=== PATIENT | female | born 1990 | race Caucasian/White ===

== ENCOUNTER 2021-04-27 05:31 | Outpatient (CLI) | payer BC ==
[~2021-04-27] VITALS: Ht 172.7 cm; Wt 86.3 kg
[~2021-04-27 05:31] MED LIST: CONTRACEPTIVE PO; OXYC-12 PO
[2021-04-27] MEDS ORDERED: SERT100T PO (14:47)
[2021-04-27] MEDS ORDERED: HYDR-700 PO (14:47)
[2021-04-27] MEDS ORDERED: LEVO112C4 PO (14:47)
[2021-04-27] MEDS ORDERED: INSULIN PUMP NOVOLOG (14:47)
== END 2021-04-27 15:05 ==
LOC: PREOP 05:31
PROVIDERS: ATTEND Surgery
DX: Z01.818 Encounter for other preprocedural examination (principal)

== ENCOUNTER 2021-05-04 09:40 | Day surgery (SDC) | payer BC ==
[~2021-05-04] VITALS: Ht 172.7 cm; Wt 90.3 kg
[2021-05-04] VITALS (11 sets, daily range): BP systolic 107–131; BP diastolic 76–92
[~2021-05-04 09:40] MED LIST changes: +HYDR-700 PO; +INSULIN PUMP NOVOLOG; +LACTATED RINGERS 1,000 ML IV PRN; +LEVO112C4 PO; +SERT100T PO; +ceFAZolin 2 GM IV Premixed 50 ML IV ONE
[2021-05-04] MEDS ORDERED: LIDOCAINE/EPI 1%-1:200,000 (XYLOCAINE) 30 ML VIAL ONE (10:07)
--- NOTE | 2021-05-04 10:12 | Progress Note-Pre Operative ---
Pre-Operative Progress Note H&P Reviewed The H&P was reviewed, patient examined and no changes noted. Date Seen by Provider: May 04, 2021 Time Seen by Provider: 10:10 Date H&P Reviewed: May 04, 2021 Time H&P Reviewed: 10:05 Pre-Operative Diagnosis: Chronic calculous cholecystitis, symptomatic hemorrhoids KISHA CASTILLO APRN May 04, 2021 10:12
[2021-05-04] MEDS ORDERED: HYDR-3817 PO (10:13)
--- NOTE | 2021-05-04 10:14 | Discharge Inst-Surgical ---
D/C Lap Instructions-KIDO Reconcile Patient Problems Problems Reviewed?: Yes New, Converted, or Re-Newed RX: RX on Chart Follow Up Appt in 2 weeks Activity as tolerated No driving for 24 hours No driving while on pain medications Incentive Spirometry use every 2 hours while awake Regular Diet Symptoms to Report: Fever over 101 degree F, Nausea/Vomiting Infection Signs and Symptoms to report: Increased redness, Foul odor of wound, Increased drainage Bathing instructions: May shower Operative Area Clean/Dry; Keep incision clean/dry If any problems/questions: Contact your physician or go to Emergency Room KISHA CASTILLO APRN May 04, 2021 10:14
[2021-05-04] MEDS ORDERED: HYDROcodone/APAP 5 MG/325 MG (LORTAB) TAB PO ONE (10:15)
[2021-05-04] MEDS ORDERED: IBUPROFEN 600 MG (MOTRIN) TAB PO PRN ×2 (10:15→10:30)
[2021-05-04] MEDS ORDERED: ONDANSETRON 4 MG/2 ML (SDV) Z0FRAN IVP PRN ×2 (10:15→13:45)
[2021-05-04] MEDS ORDERED: ACETAMINOPHEN 325 MG TABLET PO PRN (10:15)
[2021-05-04] MEDS ORDERED: morphine INJ 10 MG/ML 1ML (SYR OR VIAL) IVP PRN (10:15)
[2021-05-04] MEDS ORDERED: MIDAZOLAM 2 MG/2 ML (VERSED) VIAL ONE (11:44)
[2021-05-04] MEDS ORDERED: fentaNYL INJ 100 MCG/2 ML AMP ONE ×2 (11:44→13:43)
[2021-05-04] MEDS ORDERED: proPOfol 200 MG/20 ML (DIPRIVAN) VIAL IV ONE (12:06)
[2021-05-04] MEDS ORDERED: ROCURONIUM 10 MG/ML 5 ML SYRINGE IV ONE (12:06)
[2021-05-04] MEDS ORDERED: ONDANSETRON 4 MG/2 ML (SDV) Z0FRAN ONE ×2 (12:06→13:47)
[2021-05-04] MEDS ORDERED: LIDOCAINE PF 2% 5 ML (XYLOCAINE) VIAL ONE (12:06)
[2021-05-04] MEDS ORDERED: SEVOFLURANE (ULTANE) 15 ML INHAL SOLN ONE (13:38)
--- NOTE | 2021-05-04 13:41 | Progress Note-Post Operative ---
Post-Operative Progess Note Surgeon (s)/Museum Tour Guide (s) Surgeon ZULLY BARR MD Museum Tour Guide: jayson aguirre PHOTO FINISHER Pre-Operative Diagnosis GALLSTONES AND HEMMORHOIDS Post-Operative Diagnosis gallstones, stage 3 ext and int hemorrhoids. Procedure & Operative Findings Date of Procedure 05/04/21 Procedure Performed/Findings laparoscopic cholecystectomy. hemorrhoidectomy. Anesthesia Type get Estimated Blood Loss Estimated blood loss (mL): minimal Specimens/Packing Specimens Removed gallbladder, hemorrhoids. ZULLY BARR MD May 04, 2021 13:41
[2021-05-04] MEDS ORDERED: MEPERIDINE (DEMEROL) INJ 50 MG/ML IVP ONE (13:45)
[2021-05-04] MEDS ORDERED: KETOROLAC 30 MG/ML VIAL IVP ONE (13:45)
[2021-05-04] MEDS ORDERED: HYDROmorphone 2 MG/ML VIAL (DILAUDID) IV ONE (13:45)
[2021-05-04] MEDS ORDERED: fentaNYL INJ 100 MCG/2 ML AMP IVP ONE (13:45)
[2021-05-04] MEDS ORDERED: PROMETHAZINE INJ 25 MG/ML (PHENERGAN) AMP IVP ONE (13:45)
[2021-05-04] MEDS ORDERED: KETOROLAC 30 MG/ML VIAL ONE (13:46)
--- NOTE | 2021-05-04 14:33 | Anesthesia-General Post-Op ---
General Patient Condition Mental Status/LOC: Same as Preop Cardiovascular: Satisfactory Nausea/Vomiting: Absent Respiratory: Satisfactory Pain: Controlled Complications: Absent Post Op Complications Complications None Follow Up Care/Instructions Patient Instructions None needed. Anesthesia/Patient Condition Patient Condition Patient is doing well, no complaints, stable vital signs, no apparent adverse anesthesia problems. No complications reported per nursing. BIRDIE HONG CRNA May 04, 2021 14:33
--- NOTE | 2021-05-04 20:33 | OPERATIVE REPORT ---
DATE OF SERVICE: 05/04/2021 ATTENDING PRIMARY CARE PHYSICIAN: Dr. Kemi Richards. PREOPERATIVE DIAGNOSES: Symptomatic chronic calculous cholecystitis and symptomatic stage III external and internal hemorrhoids. POSTOPERATIVE DIAGNOSES: Symptomatic chronic calculous cholecystitis and symptomatic stage III external and internal hemorrhoids. PROCEDURES PERFORMED: Laparoscopic cholecystectomy, pudendal nerve black, closed hemorrhoidectomy. SURGEON: Zully Barr MD. PAGINATOR: Anthony Wilcox APRN. ANESTHESIA: General endotracheal. ESTIMATED BLOOD LOSS: Minimal. FINDINGS: Symptomatic chronic calculous cholecystitis and symptomatic stage III external and internal hemorrhoids. DISPOSITION: The patient tolerated the procedure well. INDICATIONS FOR PROCEDURE: The patient is a 30-year-old female, who has had right upper abdominal quadrant pain after eating meals as well as nausea, vomiting, and diarrhea. She underwent an ultrasound, which did show gallstones. She also reports that she has had a longstanding issues with hemorrhoids, which frequently become flared and bleed. She reports that she has to manually reduce them; however, they come back out soon after. Upon examination, she was found to have stage III external and internal hemorrhoids as she has tried medical management with stool softeners as well as Sitz baths and high fiber supplementation, which has not helped. DESCRIPTION OF PROCEDURE: The patient was brought to the operating room and laid supine on the table. After adequate IV pain and sedative medications and general endotracheal intubation, the abdomen was prepped and draped in a standard surgical fashion. A 0.5% Marcaine with epinephrine was then used to anesthetize the overlying skin in the left upper abdominal quadrant and a transverse skin incision was made using a 15 blade. A 0 silk suture was applied to the medial aspect incision for retraction and a Veress needle inserted with a low opening pressure of 0 mmHg. The abdomen was then insufflated to 15 mmHg pressure. The Veress needle removed and a 5 mm XL trocar placed followed by a 5 mm 45-degree angle laparoscope visualizing the peritoneal cavity. A 4-quadrant abdominal exploration was performed. There was a distended gallbladder, no gallbladder wall thickening. Under direct visualization, we then proceeded to place a supraumbilical 10 mm port after the skin and peritoneal lining were anesthetized using 0.5% Marcaine with epinephrine and a transverse skin incision was made using a 15 blade. In a similar manner, a right upper abdominal quadrant 5 mm port was placed. The patient was then placed in a reverse Trendelenburg position as well as plane right side up, left side down. The fundus of the gallbladder was then retracted anteriorly and superiorly. The hepatoduodenal ligament was then opened using blunt dissection as well as an electrocautery on the hook instrument as well as a [place] dissector. The entire critical view of safety was identified including the triangle of Calot as well as the cystic duct and artery as the only two structures going into the gallbladder as well as the cystic plate behind the proximal gallbladder. A timeout was then taken and the cystic duct and artery were clipped proximally, distally and cut with EndoShears. The gallbladder was then dissected off the liver bed using electrocautery on the hook instrument with visualization of good hemostasis as well as no leaking ducts of Luschka. The gallbladder was removed through the 10 mm port site using an EndoCatch bag. The 10 mm port site fascia and peritoneum were then closed under direct visualization using a [place] device and 0 Vicryl suture. The abdomen was desufflated and remaining ports removed. All skin incisions were closed using 4-0 Monocryl running subcuticular sutures, cleaned and covered with Dermabond. The patient was then placed in a lithotomy position and the perineum prepped and draped in a standard surgical fashion. Stage III external and internal hemorrhoidal cushions were identified. We then proceeded with bilateral pudendal nerve block with 1% lidocaine and visualized relaxing of anal sphincters and a speculum placed. We then proceeded with excision of each hemorrhoidal cushions, starting with the anterior most cushion. A 0 Vicryl suture was placed just proximal to the anterior hemorrhoid and the tag placed on the suture. We then proceeded with excision of the external and internal hemorrhoid in continuity using the Sonicision identifying the anal sphincter and preserving this throughout the process. The mucosa and anoderm were then reapproximated using the 0 Vicryl running suture. In a similar manner, the two posterior cushions were excised and closed using 0 Vicryl running sutures with visualization of good hemostasis and no stricture identified with two fingerbreadths diameter. The anus was then packed with Gelfoam covered in Surgicel. The patient tolerated the procedure well. We will start IV normal pain medication as well as a clear liquid diet. Once she is tolerating clears, has good pain control with oral pain medications, ambulating well, we will discharge her home. She will be instructed to do no heavy lifting or exertion for the next two weeks and to do Sitz baths q.i.d. as well as after every bowel movement. Job ID: [id number] DocumentID: [id number] Dictated Date: 05/04/2021 13:47:17 Building Maintenance Technician Date: 05/04/2021 20:32:42 Dictated By: ZULLY BARR MD MTDD
== END 2021-05-04 17:00 | disposition home or self-care (01) ==
LOC: SDC 09:40
PROVIDERS: ATTEND Surgery
DX: K80.10 Calculus of gallbladder with chronic cholecystitis without obstruction (principal); K64.2 Third degree hemorrhoids; F32.9 Major depressive disorder, single episode, unspecified; E10.9 Type 1 diabetes mellitus without complications; F41.9 Anxiety disorder, unspecified; E03.9 Hypothyroidism, unspecified; Z87.891 Personal history of nicotine dependence; Z79.899 Other long term (current) drug therapy; Z79.890 Hormone replacement therapy; Z79.2 Long term (current) use of antibiotics
CPT/HCPCS: 82947; 84703; 87081

== ENCOUNTER → 2021-07-27 | Outpatient (CLI) | payer BC ==
[~2021-07-27] VITALS: Ht 172.7 cm; Wt 90.3 kg
[~2021-07-27] MED LIST changes: +HYDR-3817 PO; +IBUP-2473 PO; -LACTATED RINGERS 1,000 ML IV PRN; +PANT40TA2 PO; +VORT20TA PO; -ceFAZolin 2 GM IV Premixed 50 ML IV ONE
== END | disposition home or self-care (01) ==
LOC: PREOP 10:17
PROVIDERS: ATTEND Surgery
DX: Z01.818 Encounter for other preprocedural examination (principal)

== ENCOUNTER 2021-07-28 10:30 | Day surgery (SDC) | payer BC, OTHER ==
[2021-07-28] VITALS (8 sets, daily range): BP systolic 106–121; BP diastolic 64–87
[~2021-07-28] VITALS: Ht 172.7 cm; Wt 90.3 kg
[~2021-07-28 10:30] MED LIST changes: -PANT40TA2 PO
[2021-07-28] MEDS ORDERED: NS IV 500 ML 500 ML ONE (10:38)
[2021-07-28] MEDS ORDERED: MIDAZOLAM 5 MG/5 ML (VERSED) VIAL IV ONE (10:45)
[2021-07-28] MEDS ORDERED: NS IV 500 ML 500 ML IV PRN (10:45)
[2021-07-28] MEDS ORDERED: LIDOCAINE JELLY 2% 6 ML SYRINGE MM PRN (10:45)
[2021-07-28] MEDS ORDERED: fentaNYL INJ 100 MCG/2 ML AMP IVP ONE (10:45)
--- NOTE | 2021-07-28 12:10 | Conscious Sedation/ASA ---
Conscious Sedation Pre-Proced Time 11:30 ASA Score 2 For ASA 3 and 4: Consider anesthesia and medical clearance. Also, for patients with a history of failed moderate sedation consider anesthesia. Airway Lungs Heart ASA score ASA 1: a normal healthy patient ASA 2: a patient with a mild systemic disease (mid diabetes, controlled hypertension, obesity ASA 3: a patient with a severe systemic disease that limits activity (angina, COPD, prior Myocardial infarction) ASA 4: a patient with an incapacitating disease that is a constant threat to life (CHF, renal failure) ASA 5: a moribund patient not expected to survive 24 hrs. (ruptured aneurysm) ASA 6: a declared brain- patient whose organs are being harvested. For emergent operations, add the letter E after the classification Mallampati Classification Grade 2 Sedation Plan Analgesia, Amnesia, Plan communicated to team members, Discussed options with patient/fam, Discussed risks with patient/fam The patient is an appropriate candidate to undergo the planned procedure, sedation, and anesthesia. The patient immediately re-assessed prior to indication. ZULLY BARR MD Jul 28, 2021 12:10
--- NOTE | 2021-07-28 12:11 | Progress Note-Pre Operative ---
Pre-Operative Progress Note H&P Reviewed The H&P was reviewed, patient examined and no changes noted. Date Seen by Provider: Jul 28, 2021 Time Seen by Provider: 11:30 Date H&P Reviewed: Jul 28, 2021 Time H&P Reviewed: 11:30 Pre-Operative Diagnosis: GERD, nausea ZULLY BARR MD Jul 28, 2021 12:11
[2021-07-28] MEDS ORDERED: PANT40TA2 PO (12:13)
--- NOTE | 2021-07-28 12:14 | Discharge Inst-Surgical ---
D/C Lap Instructions-KIDO New, Converted, or Re-Newed RX: RX on Chart Follow Up Activity as tolerated High Fiber Diet 25g or more per day Avoid Alcohol, Caffeine, Spicy [place] and Acid foods. Drink 64 fluid oz or more of fluids per day. Symptoms to Report: Fever over 101 degree F, Nausea/Vomiting If any problems/questions: Contact your physician or go to Emergency Room ZULLY BARR MD Jul 28, 2021 12:14
[2021-07-28] MEDS ORDERED: morphine INJ 10 MG/ML 1ML (SYR OR VIAL) IVP PRN ×2 (12:15)
[2021-07-28] MEDS ORDERED: ONDANSETRON 4 MG/2 ML (SDV) Z0FRAN IVP PRN (12:15)
[2021-07-28] MEDS ORDERED: ACETAMINOPHEN 325 MG TABLET PO PRN (12:15)
[2021-07-28] MEDS ORDERED: oxyCODONE/APAP 5/325MG (PERCOCET 5) TABLET PO PRN (12:15)
[2021-07-28] MEDS ORDERED: HURRICAINE EXT TUBE (BENZOCAINE) ONE (12:52)
[2021-07-28] MEDS ORDERED: MIDAZOLAM 5 MG/5 ML (VERSED) VIAL ONE ×2 (12:53→13:01)
[2021-07-28] MEDS ORDERED: fentaNYL INJ 100 MCG/2 ML AMP ONE (12:53)
--- NOTE | 2021-07-28 13:38 | Progress Note-Post Operative ---
Post-Operative Progess Note Surgeon (s)/Firebreak Cutter (s) Surgeon ZULLY BARR MD Firebreak Cutter: none Pre-Operative Diagnosis GERD, nausea Post-Operative Diagnosis reflux esophagitis(stage 2), small HH(2cm), mod gastritis. Procedure & Operative Findings Date of Procedure 07/28/21 Procedure Performed/Findings EGD with bx. Anesthesia Type cs Estimated Blood Loss Estimated blood loss (mL): minimal Specimens/Packing Specimens Removed ge jxn, antrum ZULLY BARR MD Jul 28, 2021 13:38
--- NOTE | 2021-07-28 20:21 | OPERATIVE REPORT ---
DATE OF SERVICE: 07/28/2021 ATTENDING PRIMARY CARE PHYSICIAN: Dr. Anthony Saleh. PREOPERATIVE DIAGNOSIS: Persistent nausea, vomiting. POSTOPERATIVE DIAGNOSES: Reflux esophagitis stage II, small hiatal hernia 1.5 to 2 cm in size, moderate gastritis and no distal obstructions. PROCEDURES PERFORMED: EGD with biopsy. SURGEON: Zully Barr MD. ANESTHESIA: Conscious sedation. ESTIMATED BLOOD LOSS: Minimal. FINDINGS: Reflux esophagitis stage II, small hiatal hernia 1.5 to 2 cm in size, moderate gastritis, and no distal obstructions. DISPOSITION: The patient tolerated the procedure well. INDICATIONS FOR PROCEDURE: The patient is a 31-year-old female known to us. She initially presented with right upper abdominal quadrant pain usually after eating meals and this was also associated with nausea and vomiting and diarrhea. An ultrasound did show gallstones and she underwent a laparoscopic cholecystectomy on 05/04/2021. She also underwent a hemorrhoidectomy for stage III external and internal hemorrhoids. Since that time, she reports that she does have persistence of pain in the right upper abdominal quadrant as well as mild nausea; however, no vomiting. DESCRIPTION OF PROCEDURE: The patient was brought to the endoscopy suite and laid in the left lateral decubitus position. After adequate IV pain and sedative medications and conscious sedation anesthesia, the mouthpiece was applied. The endoscope was then placed in the mouth, visualizing the pharynx and hypopharyngeal region. Vocal cords, epiglottis, and vallecula were identified and appeared to be normal. The endoscope was then gently intubated at the esophageal opening and esophagus insufflated. The endoscope was then advanced to the first, second and third portion of the esophagus. At the level of the GE junction, a reflux esophagitis stage II identified. The GE junction was also intrathoracic consistent with a hiatal hernia. A biopsy was taken of the GE junction with forceps with visualization of good hemostasis. The endoscope was then advanced into the stomach and the endoscope retroflexed, visualizing a small hiatal hernia approximately 2 cm in size. There was a moderate severity gastritis more focused towards the antrum of the stomach; however, no ulcerations, polyps or any neoplasms. A biopsy was taken of the antrum to rule out H. pylori with visualization of good hemostasis. The endoscope was then advanced to the pylorus and the first and second portion of the duodenum, which appeared normal with no duodenitis to indicate any food allergies. The endoscope was then slowly withdrawn while taking a second look and suctioning of residual air with no additional findings. The patient tolerated the procedure well. We feel that her symptoms may be multifactorial. She does have a reflux esophagitis and hiatal hernia as well as gastritis and we will start her on a PPI acid medical director. She has also been insulin-dependent diabetic for a number of years now and she may also have some component of gastroparesis. We will also proceed with a trial of Reglan on a p.r.n. basis. Job ID: [id number] DocumentID: [id number] Dictated Date: 07/28/2021 13:20:20 Special Education Educational Assistant Date: 07/28/2021 20:20:45 Dictated By: ZULLY BARR MD
== END 2021-07-28 14:04 | disposition home or self-care (01) ==
LOC: ENDO 10:30
PROVIDERS: ATTEND Surgery
DX: K21.00 Gastro-esophageal reflux disease with esophagitis, without bleeding (principal); K44.9 Diaphragmatic hernia without obstruction or gangrene; K29.50 Unspecified chronic gastritis without bleeding; E10.9 Type 1 diabetes mellitus without complications; E03.9 Hypothyroidism, unspecified; Z79.4 Long term (current) use of insulin; Z79.890 Hormone replacement therapy; Z87.891 Personal history of nicotine dependence; Z20.822 Contact with and (suspected) exposure to COVID-19
CPT/HCPCS: 84703; 87635

== ENCOUNTER 2022-10-25 05:35 | Outpatient (CLI) | payer BC ==
[~2022-10-25] VITALS: Ht 175.3 cm; Wt 88.6 kg
[~2022-10-25 05:35] MED LIST changes: +PANT40TA2 PO
[2022-10-29] MEDS ORDERED: NORG1TAB14 PO (15:42)
[2022-10-29] MEDS ORDERED: ESCI10TA PO (15:42)
== END 2022-10-30 09:35 | disposition home or self-care (01) ==
LOC: PREOP 05:35
PROVIDERS: ATTEND Otolaryngology Otolaryngology/Facial Plastic Surgery
DX: Z01.818 Encounter for other preprocedural examination (principal)

== ENCOUNTER 2022-11-02 09:28 | Day surgery (SDC) | payer BC ==
[~2022-11-02] VITALS: Ht 175.3 cm; Wt 85.6 kg
[2022-11-02] VITALS (12 sets, daily range): BP systolic 109–143; BP diastolic 65–98
[~2022-11-02 09:28] MED LIST changes: +ESCI10TA PO; +NORG1TAB14 PO
[2022-11-02] MEDS ORDERED: LACTATED RINGERS 1,000 ML IV PRN (10:15)
[2022-11-02 10:18] LABS: BASOPHILS # (AUTO) 0.1 10^3/uL (0.0-0.1); BASOPHILS % (AUTO) 1 % (0-10); EOSINOPHILS # (AUTO) 0.2 10^3/uL (0.0-0.3); EOSINOPHILS % (AUTO) 5 % (0-10); HEMATOCRIT 35 % (35-52); LYMPHOCYTES % (AUTO) 22 % (12-44); MEAN CORPUSCULAR HEMOGLOBIN 28 pg (25-34); MEAN CORPUSCULAR HGB CONC 34 g/dL (32-36); MEAN CORPUSCULAR VOLUME 84 fL (80-99); MEAN PLATELET VOLUME 9.9 fL (9.0-12.2); MONOCYTES # (AUTO) 0.4 10^3/uL (0.0-1.0); MONOCYTES % (AUTO) 9 % (0-12); NEUTROPHILS # (AUTO) 2.8 10^3/uL (1.8-7.8); NEUTROPHILS % (AUTO) 64 % (42-75); PLATELET COUNT 310 10^3/uL (130-400); WHITE BLOOD COUNT 4.5 10^3/uL (4.3-11.0)
[2022-11-02] MEDS ORDERED: FAMOTIDINE 20MG/2ML IV (PEPCID) IV ONE (10:30)
[2022-11-02] MEDS ORDERED: ONDANSETRON 4 MG/2 ML (SDV) Z0FRAN IV ONE (10:30)
[2022-11-02] MEDS ORDERED: SCOPOLAMINE 1.5 MG (TRANSDERM-SCOP) PATCH TOP ONE (10:30)
[2022-11-02] MEDS ORDERED: ONDANSETRON 4 MG/2 ML (SDV) Z0FRAN ONE ×2 (10:51→11:55)
[2022-11-02] MEDS ORDERED: proPOfol 200 MG/20 ML (DIPRIVAN) VIAL IV ONE (10:51)
[2022-11-02] MEDS ORDERED: MIDAZOLAM 2 MG/2 ML (VERSED) VIAL ONE (10:51)
[2022-11-02] MEDS ORDERED: fentaNYL INJ 100 MCG/2 ML AMP ONE (10:51)
[2022-11-02] MEDS ORDERED: GLYCOPYRROLATE 0.2 MG/ML (ROBINUL) 2 ML VIAL ONE (10:51)
[2022-11-02] MEDS ORDERED: LIDOCAINE PF 2% 5 ML (XYLOCAINE) VIAL ONE (10:51)
--- NOTE | 2022-11-02 11:08 | Progress Note-Pre Operative ---
Pre-Operative Progress Note Date of Available H&P: Nov 02, 2022 Date H&P Reviewed: Nov 02, 2022 Time H&P Reviewed: 10:00 History & Physical: H&P Reviewed, Patient Examed, No changes noted Changes from last HP none Pre-Operative Diagnosis: Chornic Tons SHAHNAZ ATKINSON MD Nov 02, 2022 11:08
--- NOTE | 2022-11-02 11:09 | Progress Note-Post Operative ---
Post-Operative Progess Note Surgeon (s)/Fitness And Wellness Instructor (s) Surgeon SHAHNAZ ATKINSON MD Fitness And Wellness Instructor n/a Pre-Operative Diagnosis Chornic Tons Post-Operative Diagnosis same Post-Op Procedure Note Date of Procedure: Nov 02, 2022 Name of Procedure Performed: Tonsillectomy Description & Findings Description and Findings: n/a Anesthesia Type get Estimated Blood Loss minimal Packing none. Specimen(s) collected/removed tonsils SHAHNAZ ATKINSON MD Nov 02, 2022 11:09
[2022-11-02] MEDS ORDERED: APAP 325 MG/10.15 ML LIQ (TYLENOL) UDC PO PRN (11:15)
[2022-11-02] MEDS ORDERED: NS IV 1000 ML 1,000 ML IV SCH (11:15)
[2022-11-02] MEDS ORDERED: oxyCODONE 5 MG/5 ML ORAL SOLN (roxiCODONE) 5 ML UDC PO PRN (11:15)
[2022-11-02] MEDS ORDERED: ONDANSETRON 4 MG/2 ML (SDV) Z0FRAN IVP PRN (11:45)
[2022-11-02] MEDS ORDERED: HYDROmorphone 2 MG/ML VIAL (DILAUDID) IV ONE (11:45)
[2022-11-02] MEDS ORDERED: morphine INJ 10 MG/ML 1ML (SYR OR VIAL) IVP ONE (11:45)
[2022-11-02] MEDS ORDERED: morphine INJ 10 MG/ML 1ML (SYR OR VIAL) ONE (11:51)
[2022-11-02] MEDS ORDERED: DEXAINTSOL PO (12:28)
[2022-11-02] MEDS ORDERED: OXYC5SOL19 PO (12:28)
[2022-11-02] MEDS ORDERED: TETRACAINESUCKERS MT (12:28)
[2022-11-02] MEDS ORDERED: AZIT200S47 PO (12:28)
[2022-11-02] MEDS ORDERED: NEOSTIGMINE (BLOXIVERZ ) 1 MG/1ML 10 ML VIAL ONE (12:29)
[2022-11-02] MEDS ORDERED: SEVOFLURANE (ULTANE) 15 ML INHAL SOLN ONE (12:29)
[2022-11-02] MEDS ORDERED: ROCURONIUM 50 MG/5 ML (ZEMURON) VIAL IV ONE (12:29)
[2022-11-02] MEDS ORDERED: oxyCODONE 5 MG/5 ML ORAL SOLN (roxiCODONE) 5 ML UDC ONE (13:06)
--- NOTE | 2022-11-02 14:15 | Anesthesia-General Post-Op ---
General Patient Condition Mental Status/LOC: Same as Preop Cardiovascular: Satisfactory Nausea/Vomiting: Absent Respiratory: Satisfactory Pain: Controlled Complications: Absent Post Op Complications Complications None Follow Up Care/Instructions Patient Instructions None needed. Anesthesia/Patient Condition Patient Condition Patient was doing well after the procedure with no complaints, stable vital signs, no apparent adverse anesthesia problems. No complications reported per nursing. CATHERINE DHALIWAL 10, 2023 14:15
== END 2022-11-02 14:40 | disposition home or self-care (01) ==
LOC: SDC 09:28
PROVIDERS: ATTEND Otolaryngology Otolaryngology/Facial Plastic Surgery
DX: J35.01 Chronic tonsillitis (principal); F17.290 Nicotine dependence, other tobacco product, uncomplicated
CPT/HCPCS: 36415; 84703; 85025; 87081

== ENCOUNTER 2022-11-08 08:40 | Emergency (ER) | payer BC ==
[~2022-11-08] VITALS: Ht 175 cm; Wt 76.0 kg
[~2022-11-08 08:40] MED LIST changes: +AZIT200S47 PO; +DEXAINTSOL PO; +OXYC5SOL19 PO; +TETRACAINESUCKERS MT
--- NOTE | 2022-11-08 08:59 | ED General ---
General Chief Complaint: Oral/Throat Problems Stated Complaint: POST OP TONSILS | VOMITING | NAUSEA Nursing Triage Note: Patient ambulatory to room 6 w c/o nausea and vomitting. Vomitting 2x started this AM. Patient states she has been nauseous since the surgery on Saturday and has had a lot of relux. Patient states the vomit has had a little bit of blood in it. Last took oxycodone at 2am. eating and drinking very little. Source of Information: Patient Exam Limitations: No Limitations History of Present Illness Date Seen by Provider: Nov 08, 2022 Time Seen by Provider: 08:59 Initial Comments Patient is a 32-year-old female who presents to the emergency department today with a chief complaint of pain all over, nausea and vomiting. Patient states that she had her tonsils out last Saturday, 6 days ago. She has vomited a couple of times today. She denies fever. She last took oxycodone at around 2 AM this morning but has not had a bowel movement really since before surgery although she states she passed a tiny bit of stool when she vomited once this morning. Denies dysuria urgency frequency. Significant throat pain. Having a very hard time swallowing even her secretions. Complains of terrible acid reflux She is an insulin-dependent diabetic with a pump. She states her last sugar that she saw this morning was about 170. She does not think she has ever been in DKA. Timing/Duration: 4-5 Days Severity: Severe Associated Systoms: Malaise, Nausea/Vomiting Allergies and Home Medications Allergies Coded Allergies: latex (Unverified Allergy, Unknown, 10/29/22) Patient Home Medication List Home Medication List Reviewed: Yes Azithromycin (Azithromycin) 200 Mg/5 Ml Susp.recon, 1 TSP PO DAILY Prescribed by: Savana Sutherland on 11/02/22 1228 Dexamethasone (Decadron Intensol Oral Solution (Repackaging)) 1 Mg/Ml Glendy, 2 TSP PO DAILY Prescribed by: Savana Sutherland on 11/02/22 1228 Escitalopram Oxalate (Lexapro) 10 Mg Tablet, 10 MG PO DAILY, (Reported) Entered as Reported by: Donna Lynch on 10/29/22 1542 Levothyroxine Sodium (Levothyroxine) 112 Mcg Capsule, 112 MCG PO DAILY, (Reported) Entered as Reported by: JENNIFER DOWNING on 04/27/21 1447 Lidocaine HCl (Lidocaine HCl Viscous) 2 % Solution, 5 ML MM Q8H Prescribed by: GWEN LUNDBERG on 11/08/22 1138 Norgestimate-Ethinyl Estradiol (Sprintec 28 Day Tablet) 0.25 Mg-35 Mcg Tablet, 1 EACH PO DAILY, (Reported) Entered as Reported by: Donna Lynch on 10/29/22 1542 Oxycodone HCl (Oxycodone HCl) 5 Mg/5 Ml Solution, 1-2 TSP PO 4-6HR Prescribed by: Savana Sutherland on 11/02/22 1228 Tetracaine (Tetracaine Suckers) Carole Ea, 1 EA MT UD PRN for PAIN Prescribed by: Savana Sutherland on 11/02/22 1228 [Insulin Pump Novolog] , 75 UNIT DAILY, (Reported) Entered as Reported by: JENNIFER DOWNING on 04/27/21 1447 Discontinued Medications Ibuprofen (Ibuprofen) 200 Mg Tablet, 200 MG PO PRN, (Reported) Entered as Reported by: ARABELLA RUVALCABA on 07/27/21 1258 Review of Systems Review of Systems Constitutional: see HPI EENTM: throat pain Respiratory: no symptoms reported Cardiovascular: no symptoms reported Gastrointestinal: constipation, heartburn, nausea, vomiting Genitourinary: no symptoms reported Musculoskeletal: other ("Pain all over") Skin: no symptoms reported All Other Systems Reviewed Negative Unless Noted: Yes Past Sxriqxa-Odxojs-Ircwxt Hx Patient Social History Tobacco Use?: No Substance use?: No Alcohol Use?: No Immunizations Up To Date Tetanus Booster (TDap): Less than 5yrs First/Initial COVID19 Vaccinat: unknown Second COVID19 Vaccination Jimmy: 05/16 Third COVID19 Vaccination Date: 11/13 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 Seasonal Allergies: No Past Medical History Surgeries: Yes (GUM GRAFT, WISDOM TEETH EXTRACTED) Adenoidectomy, Section, Gallbladder Respiratory: No Currently Using CPAP: No Currently Using BIPAP: No Cardiac: No Neurological: No 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 Sexually Transmitted Disease: No Genitourinary: No Gastrointestinal: No Chronic Constipation, Chronic Diarrhea, Gall Bladder Disease Musculoskeletal: No Chronic Back Pain Endocrine: Yes Diabetes, Insulin dep HEENT: No Loss of Vision: Denies Hearing Impairment: Denies Cancer: No Psychosocial: Yes Anxiety, Depression Integumentary: No Blood Disorders: No Adverse Reaction/Blood Tranf: No Physical Exam Vital Signs Vital Signs - First Documented 11/08/22 08:49 Temp 36.3 Pulse 89 Resp 18 B/P (MAP) 121/95 (104) Pulse Ox 99 O2 Delivery Room Air Capillary Refill : Less Than 3 Seconds Height, Weight, BMI Height: '" Weight: lbs. oz. kg; 24.00 BMI Method:Stated General Appearance: No Apparent Distress, WD/WN Eyes: Bilateral Eye Normal Inspection, Bilateral Eye PERRL, Bilateral Eye EOMI HEENT: Other (Eschars noted to the posterior pharynx, mild erythema. Dry mucous membrane) Neck: Supple, Tender Lateral (Mildly tender bilaterally) Respiratory: Lungs Clear, Normal Breath Sounds, No Accessory Muscle Use, No Respiratory Distress Cardiovascular: Regular Rate, Rhythm, Normal Peripheral Pulses Gastrointestinal: Soft, Tenderness (Diffuse mild tenderness) Extremity: Normal Inspection, Normal Range of Motion Neurologic/Psychiatric: Alert, Oriented x3, No Motor/Sensory Deficits, Normal Mood/Affect Skin: Normal Color, Warm/Dry Progress/Results/Core Measures Suspected Sepsis SIRS Temperature: Pulse: 89 Respiratory Rate: 18 Laboratory Tests 11/08/22 09:05: White Blood Count 8.8 Blood Pressure 121 /95 Mean: 104 Laboratory Tests 11/08/22 09:05: Creatinine 1.03, Platelet Count 352, Total Bilirubin 0.9 Results/Orders Lab Results Laboratory Tests Test 11/08/22 09:05 11/08/22 10:09 11/08/22 10:14 Range/Units White Blood Count 8.8 4.3-11.0 10^3/uL Red Blood Count 4.69 3.80-5.11 10^6/uL Hemoglobin 13.3 11.5-16.0 g/dL Hematocrit 39 35-52 % Mean Corpuscular Volume 84 80-99 fL Mean Corpuscular Hemoglobin 28 25-34 pg Mean Corpuscular Hemoglobin Concent 34 32-36 g/dL Red Cell Distribution Width 13.1 10.0-14.5 % Platelet Count 352 130-400 10^3/uL Mean Platelet Volume 9.9 9.0-12.2 fL Immature Granulocyte % (Auto) 0 % Neutrophils (%) (Auto) 67 42-75 % Lymphocytes (%) (Auto) 24 12-44 % Monocytes (%) (Auto) 7 0-12 % Eosinophils (%) (Auto) 1 0-10 % Basophils (%) (Auto) 1 0-10 % Neutrophils # (Auto) 5.9 1.8-7.8 10^3/uL Lymphocytes # (Auto) 2.1 1.0-4.0 10^3/uL Monocytes # (Auto) 0.7 0.0-1.0 10^3/uL Eosinophils # (Auto) 0.1 0.0-0.3 10^3/uL Basophils # (Auto) 0.1 0.0-0.1 10^3/uL Immature Granulocyte # (Auto) 0.0 0.0-0.1 10^3/uL Sodium Level 135 135-145 MMOL/L Potassium Level 4.1 3.6-5.0 MMOL/L Chloride Level 98 98-107 MMOL/L Carbon Dioxide Level 23 21-32 MMOL/L Anion Gap 14 5-14 MMOL/L Blood Urea Nitrogen 13 7-18 MG/DL Creatinine 1.03 0.60-1.30 MG/DL Estimat Glomerular Filtration Rate 74 BUN/Creatinine Ratio 13 Glucose Level 280 H 70-105 MG/DL Calcium Level 9.1 8.5-10.1 MG/DL Corrected Calcium 9.0 8.5-10.1 MG/DL Total Bilirubin 0.9 0.1-1.0 MG/DL Aspartate Amino Transf (AST/SGOT) 65 H 5-34 U/L Alanine Aminotransferase (ALT/SGPT) 93 H 0-55 U/L Alkaline Phosphatase 149 H 40-136 U/L Total Protein 7.8 6.4-8.2 GM/DL Albumin 4.1 3.2-4.5 GM/DL Beta-Hydroxybutyrate (Chem panel) 2.89 H 0.00-0.27 MMOL/L Venous Blood pH 7.43 H 7.31-7.41 Venous Blood Partial Pressure CO2 37 L 40-52 MMHG Venous Blood HCO3 25 22-28 MMOL/L Urine Color YELLOW Urine Clarity CLEAR Urine pH 6.0 5-9 Urine Specific [place] 1.025 H 1.016-1.022 Urine Protein TRACE H NEGATIVE Urine Glucose (UA) 2+ H NEGATIVE Urine Ketones 3+ H NEGATIVE Urine Nitrite NEGATIVE NEGATIVE Urine Bilirubin NEGATIVE NEGATIVE Urine Urobilinogen 0.2 < = 1.0 MG/DL Urine Leukocyte Esterase NEGATIVE NEGATIVE Urine RBC (Auto) TRACE-I H NEGATIVE Urine RBC RARE /HPF Urine WBC 2-5 /HPF Urine Squamous Epithelial Cells 2-5 /HPF Urine Crystals NONE /LPF Urine Bacteria MODERATE H /HPF Urine Casts NONE /LPF Urine Mucus MODERATE H /LPF Urine Culture Indicated YES My Orders Orders - GWEN LUNDBERG MD Ed Iv/Invasive Line Start (11/08/22 09:05) Cbc With Automated Diff (11/08/22 09:05) Comprehensive Metabolic Panel (11/08/22 09:05) Beta Hydroxybutyrate (11/08/22 09:05) Ns Iv 1000 Ml (Sodium Chloride 0.9%) (11/08/22 09:05) Ondansetron Injection (Zofran Injectio (11/08/22 09:15) Fentanyl Inj (Sublimaze Injection) (11/08/22 09:15) Ua Culture If Indicated (11/08/22 09:49) Pantoprazole Injection (Protonix Injecti (11/08/22 10:00) Promethazine Injection (Phenergan Injec (11/08/22 10:00) Ns Iv 1000 Ml (Sodium Chloride 0.9%) (11/08/22 09:53) Venous Blood Gas (11/08/22 10:09) Urine Culture (11/08/22 10:14) Lidocaine 2% Viscous 15 Ml (Xylocaine Vi (11/08/22 11:00) Antacid Suspension (Mylanta Suspension (11/08/22 11:00) Ns Iv 1000 Ml (Sodium Chloride 0.9%) (11/08/22 11:33) Medications Given in ED Current Medications Medications Dose Ordered Sig/Sofia Route Start Time Stop Time Status Last Admin Dose Admin Al Hydrox/Mg Hydrox/Simethicone 30 ml ONCE ONCE PO 11/08/22 11:00 11/08/22 11:01 DC 11/08/22 11:00 30 ML Fentanyl Citrate 25 mcg ONCE ONCE IVP 11/08/22 09:15 11/08/22 09:16 DC 11/08/22 09:13 25 MCG Lidocaine HCl 5 ml ONCE ONCE PO 11/08/22 11:00 11/08/22 11:01 DC 11/08/22 11:00 5 ML Ondansetron HCl 4 mg ONCE ONCE IVP 11/08/22 09:15 11/08/22 09:16 DC 11/08/22 09:14 4 MG Pantoprazole 40 mg ONCE ONCE IV 11/08/22 10:00 11/08/22 10:01 DC 11/08/22 09:59 40 MG Promethazine HCl 25 mg ONCE ONCE IVP 11/08/22 10:00 11/08/22 10:01 DC 11/08/22 09:59 25 MG Vital Signs/I&O 11/08/22 11/08/22 08:49 12:20 Temp 36.3 Pulse 89 86 Resp 18 16 B/P (MAP) 121/95 (104) 119/79 Pulse Ox 99 100 O2 Delivery Room Air Room Air Capillary Refill : Less Than 3 Seconds Blood Pressure Mean: 104 Progress Note : Time: 11:21 Progress Note Patient seen and evaluated by me. Evaluation today includes physical exam, CBC, Chem-12, beta hydroxybutyric acid level, venous blood gas, urinalysis. Pertinent physical exam findings ill-appearing 32-year-old female with dry mucous membranes, eschars in the posterior pharynx consistent with recent tonsillitis. Not tachycardic heart is regular lungs are clear abdomen is soft mildly diffusely tender. Bowel sounds are hypoactive. Blood pressure is good oxygen saturations are good. Differential diagnosis based on history and physical exam, DKA, dehydration, urinary tract infection. Labs reviewed, CBC is normal, chemistry shows slightly elevated serum blood glucose, elevated liver functions without elevated total bilirubin. Beta hydroxybutyric acid level of 2. Venous blood gas shows a pH of 7.4. Urine shows ketones, glucose and moderate bacteria. As the patient has no symptoms of urinary tract infection will let this culture before placing her on antibiotics. She is a diabetic with an insulin pump. That has remained in place. She is treated with antiemetics, Zofran, IV fluids x3 L. She was also given Phenergan 25 mg and a liter of normal saline. She was given viscous lidocaine and Maalox orally however she spit half of it out. Patient was strongly encouraged to utilize the medications to help control her symptoms so that she is better able to swallow. At this time she does not meet criteria for diabetic ketoacidosis however she does have some beta hydroxy butyrate and her blood with urine ketones. Gases normal, gap is not elevated. She does have pain medications at home as well as nausea medications. After the third liter of saline has been administered will set her up for discharge to follow-up with her primary care as needed. No clinical or objective findings to warrant hospitalization at this time. Patient and her mother who is at the bedside verbalized understanding and agreement with the plan of care. Departure Impression Primary Impression: Dehydration Additional Impressions: Hyperglycemia due to type 1 diabetes mellitus Post-op pain Disposition: HOME, SELF-CARE Condition: Improved Departure-Patient Inst. Decision time for Depature: 11:25 Referrals: KISHA FERRELL MD (PCP/Family) Primary Care Physician Patient Instructions: Dehydration, Adult ED, Tonsillectomy (DC) Add. Discharge Instructions: You need to drink fluids, sugar free popsicles are a way to also get fluids into you. I have sent a prescription of Viscous lidocaine to your pharmacy - you can swish and swallow this with 15ml (3 teaspoons) of maalox 3 times a day. Use over the counter suppositories for constipation such as Dulcolax and when you can swallow comfortably Over the counter Mag Citrate. Follow packaging instructions. Return to the Emergency Department for fever, vomiting, or any other emergent, concerning symptoms. Follow up with your primary care Dr and Dr Hernandez as scheduled. Scripts Lidocaine HCl (Lidocaine HCl Viscous) 2 % Solution 5 ML MM Q8H, #60 ML mix with 3 teaspoons Maalox (15ml); swish and swallow every 8 hours as needed for pain Prov: GWEN LUNDBERG MD 11/08/22 Copy Copies To 1: SHAHNAZ HERNANDEZ MD; KISHA FERRELL MD, KATHRYN M MD Nov 08, 2022 08:59
[2022-11-08] MEDS ORDERED: NS IV 1000 ML 1,000 ML IV STA ×3 (09:05→11:33)
[2022-11-08 09:14] LABS: BASOPHILS # (AUTO) 0.1 10^3/uL (0.0-0.1); BASOPHILS % (AUTO) 1 % (0-10); EOSINOPHILS # (AUTO) 0.1 10^3/uL (0.0-0.3); EOSINOPHILS % (AUTO) 1 % (0-10); HEMATOCRIT 39 % (35-52); HEMOGLOBIN 13.3 g/dL (11.5-16.0); LYMPHOCYTES # (AUTO) 2.1 10^3/uL (1.0-4.0); LYMPHOCYTES % (AUTO) 24 % (12-44); MEAN CORPUSCULAR HEMOGLOBIN 28 pg (25-34); MEAN CORPUSCULAR HGB CONC 34 g/dL (32-36); MEAN CORPUSCULAR VOLUME 84 fL (80-99); MEAN PLATELET VOLUME 9.9 fL (9.0-12.2); MONOCYTES # (AUTO) 0.7 10^3/uL (0.0-1.0); MONOCYTES % (AUTO) 7 % (0-12); NEUTROPHILS # (AUTO) 5.9 10^3/uL (1.8-7.8); NEUTROPHILS % (AUTO) 67 % (42-75); PLATELET COUNT 352 10^3/uL (130-400); WHITE BLOOD COUNT 8.8 10^3/uL (4.3-11.0)
[2022-11-08] MEDS ORDERED: ONDANSETRON 4 MG/2 ML (SDV) Z0FRAN IVP ONE (09:15)
[2022-11-08] MEDS ORDERED: fentaNYL INJ 100 MCG/2 ML AMP IVP ONE (09:15)
[2022-11-08 09:28] LABS: ALBUMIN 4.1 GM/DL (3.2-4.5); POTASSIUM 4.1 MMOL/L (3.6-5.0)
[2022-11-08 09:30] LABS: CALCIUM 9.1 MG/DL (8.5-10.1)
[2022-11-08 09:31] LABS: TOTAL PROTEIN 7.8 GM/DL (6.4-8.2)
[2022-11-08 09:33] LABS: BILIRUBIN,TOTAL 0.9 MG/DL (0.1-1.0)
[2022-11-08 09:34] LABS: CREATININE SERUM 1.03 MG/DL (0.60-1.30)
[2022-11-08] MEDS ORDERED: PROMETHAZINE INJ 25 MG/ML (PHENERGAN) AMP IVP ONE (10:00)
[2022-11-08] MEDS ORDERED: PANTOPRAZOLE 40 MG (PROTONIX) VIAL IV ONE (10:00)
[2022-11-08 10:21] LABS: CLARITY,URINE CLEAR; COLOR,URINE YELLOW; GLUCOSE, URINE (UA) 2+ (NEGATIVE); KETONES,URINE 3+ (NEGATIVE); LEUKOCYTE ESTERASE ,URINE NEGATIVE (NEGATIVE); NITRITE,URINE NEGATIVE (NEGATIVE); PROTEIN,URINE TRACE (NEGATIVE)
[2022-11-08 10:36] LABS: BACTERIA,URINE MODERATE /HPF; BILIRUBIN,URINE NEGATIVE (NEGATIVE); RBC,URINE RARE /HPF
[2022-11-08] MEDS ORDERED: LIDOCAINE 2% VISCOUS 15 ML UDC PO ONE (11:00)
[2022-11-08] MEDS ORDERED: ANTACID SUSP 30 ML UDC (MYLANTA) PO ONE (11:00)
[2022-11-08] MEDS ORDERED: LIDO15SO6 MM (11:38)
[2022-11-08 12:20] VITALS: BP 119/79
== END 2022-11-08 12:20 | disposition home or self-care (01) ==
LOC: EDUNIT# 08:40 → ER 08:42
DX: G89.18 Other acute postprocedural pain (principal); R07.0 Pain in throat; E10.65 Type 1 diabetes mellitus with hyperglycemia; E86.0 Dehydration; I10 Essential (primary) hypertension; Z79.4 Long term (current) use of insulin; Z90.89 Acquired absence of other organs
CPT/HCPCS: 36415; 80053; 81000; 82010; 82805; 85025; 87077; 87088; 87186

== ENCOUNTER 2022-11-12 10:34 | Emergency (ER) | payer BC ==
[~2022-11-12 10:34] MED LIST changes: +LIDO15SO6 MM
[2022-11-12] MEDS ORDERED: LACTATED RINGERS 1,000 ML IV ONE (10:45)
[2022-11-12 10:58] LABS: BASOPHILS # (AUTO) 0.1 10^3/uL (0.0-0.1); BASOPHILS % (AUTO) 1 % (0-10); EOSINOPHILS # (AUTO) 0.2 10^3/uL (0.0-0.3); EOSINOPHILS % (AUTO) 2 % (0-10); HEMATOCRIT 41 % (35-52); LYMPHOCYTES # (AUTO) 1.4 10^3/uL (1.0-4.0); LYMPHOCYTES % (AUTO) 14 % (12-44); MEAN CORPUSCULAR HEMOGLOBIN 28 pg (25-34); MEAN CORPUSCULAR HGB CONC 34 g/dL (32-36); MEAN CORPUSCULAR VOLUME 83 fL (80-99); MONOCYTES # (AUTO) 0.6 10^3/uL (0.0-1.0); MONOCYTES % (AUTO) 6 % (0-12); NEUTROPHILS # (AUTO) 7.5 10^3/uL (1.8-7.8); NEUTROPHILS % (AUTO) 77 % (42-75); PLATELET COUNT 441 10^3/uL (130-400); WHITE BLOOD COUNT 9.8 10^3/uL (4.3-11.0)
--- NOTE | 2022-11-12 10:58 | ED General ---
General Chief Complaint: Post OP Complications/Pain Stated Complaint: NEEDS FLUIDS FOR POST OP TONSILS Source of Information: Patient, Old Records History of Present Illness Date Seen by Provider: Nov 12, 2022 Time Seen by Provider: 10:42 Allergies and Home Medications Allergies Coded Allergies: latex (Unverified Allergy, Unknown, 10/29/22) Patient Home Medication List Azithromycin (Azithromycin) 200 Mg/5 Ml Susp.recon, 1 TSP PO DAILY Prescribed by: Savana Sutherland on 11/02/22 1228 Dexamethasone (Decadron Intensol Oral Solution (Repackaging)) 1 Mg/Ml Glendy, 2 TSP PO DAILY Prescribed by: Savana Sutherland on 11/02/22 1228 Escitalopram Oxalate (Lexapro) 10 Mg Tablet, 10 MG PO DAILY, (Reported) Entered as Reported by: Donna Lynch on 10/29/22 1542 Levothyroxine Sodium (Levothyroxine) 112 Mcg Capsule, 112 MCG PO DAILY, (Report ed) Entered as Reported by: JENNIFER DOWNING on 04/27/21 1447 Lidocaine HCl (Lidocaine HCl Viscous) 2 % Solution, 5 ML MM Q8H Prescribed by: GWEN LUNDBERG on 11/08/22 1138 Norgestimate-Ethinyl Estradiol (Sprintec 28 Day Tablet) 0.25 Mg-35 Mcg Tablet, 1 EACH PO DAILY, (Reported) Entered as Reported by: Donna Lynch on 10/29/22 1542 Oxycodone HCl (Oxycodone HCl) 5 Mg/5 Ml Solution, 1-2 TSP PO 4-6HR Prescribed by: Savana Sutherland on 11/02/22 1228 Tetracaine (Tetracaine Suckers) Carole Ea, 1 EA MT UD PRN for PAIN Prescribed by: Savana Sutherland on 11/02/22 1228 [Insulin Pump Novolog] , 75 UNIT DAILY, (Reported) Entered as Reported by: JENNIFER DOWNING on 04/27/21 1447 Past Tsrlchl-Wklhcq-Wxdzak Hx Immunizations Up To Date Tetanus Booster (TDap): Less than 5yrs First/Initial COVID19 Vaccinat: unknown Second COVID19 Vaccination Jimmy: 05/16 Third COVID19 Vaccination Date: 11/13 Seasonal Allergies Seasonal Allergies: No Past Medical History Surgeries: Yes (GUM GRAFT, WISDOM TEETH EXTRACTED) Adenoidectomy, Section, Gallbladder Respiratory: No Currently Using CPAP: No Currently Using BIPAP: No Cardiac: No Neurological: No 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 oz. kg; 24.00 BMI Method:Stated Progress/Results/Core Measures Suspected Sepsis SIRS Temperature: Pulse: Respiratory Rate: Laboratory Tests 11/12/22 10:50: White Blood Count 9.8 Blood Pressure / Mean: Laboratory Tests 11/12/22 10:50: Creatinine 1.03, Platelet Count 441H, Total Bilirubin 0.6 Results/Orders Lab Results Laboratory Tests Test 11/12/22 10:50 11/12/22 11:44 11/12/22 12:14 Range/Units White Blood Count 9.8 4.3-11.0 10^3/uL Red Blood Count 4.97 3.80-5.11 10^6/uL Hemoglobin 14.0 11.5-16.0 g/dL Hematocrit 41 35-52 % Mean Corpuscular Volume 83 80-99 fL Mean Corpuscular Hemoglobin 28 25-34 pg Mean Corpuscular Hemoglobin Concent 34 32-36 g/dL Red Cell Distribution Width 13.0 10.0-14.5 % Platelet Count 441 H 130-400 10^3/uL Mean Platelet Volume 10.0 9.0-12.2 fL Immature Granulocyte % (Auto) 0 % Neutrophils (%) (Auto) 77 H 42-75 % Lymphocytes (%) (Auto) 14 12-44 % Monocytes (%) (Auto) 6 0-12 % Eosinophils (%) (Auto) 2 0-10 % Basophils (%) (Auto) 1 0-10 % Neutrophils # (Auto) 7.5 1.8-7.8 10^3/uL Lymphocytes # (Auto) 1.4 1.0-4.0 10^3/uL Monocytes # (Auto) 0.6 0.0-1.0 10^3/uL Eosinophils # (Auto) 0.2 0.0-0.3 10^3/uL Basophils # (Auto) 0.1 0.0-0.1 10^3/uL Immature Granulocyte # (Auto) 0.0 0.0-0.1 10^3/uL Sodium Level 135 135-145 MMOL/L Potassium Level 3.8 3.6-5.0 MMOL/L Chloride Level 99 98-107 MMOL/L Carbon Dioxide Level 22 21-32 MMOL/L Anion Gap 14 5-14 MMOL/L Blood Urea Nitrogen 9 7-18 MG/DL Creatinine 1.03 0.60-1.30 MG/DL Estimat Glomerular Filtration Rate 74 BUN/Creatinine Ratio 9 Glucose Level 217 H 70-105 MG/DL Calcium Level 9.7 8.5-10.1 MG/DL Corrected Calcium 9.5 8.5-10.1 MG/DL Total Bilirubin 0.6 0.1-1.0 MG/DL Aspartate Amino Transf (AST/SGOT) 18 5-34 U/L Alanine Aminotransferase (ALT/SGPT) 49 0-55 U/L Alkaline Phosphatase 156 H 40-136 U/L Total Protein 8.0 6.4-8.2 GM/DL Albumin 4.2 3.2-4.5 GM/DL Glucometer 177 H 70-110 MG/DL My Orders Orders - AGNIESZKA MEJÍA DO Ed Iv/Invasive Line Start (11/12/22 10:42) Monitor-Rhythm Ecg Trace Only (11/12/22 10:42) Cbc With Automated Diff (11/12/22 10:42) Comprehensive Metabolic Panel (11/12/22 10:42) Ed Iv/Invasive Line Start (11/12/22 10:42) Lactated Ringers (Lr 1000 Ml Iv Solution (11/12/22 10:45) Ceftriaxone 1 Gm Pre-Mix (Rocephin 1 Gm (11/12/22 11:00) Morphine Injection (Morphine Injection (11/12/22 11:30) Morphine Injection (Morphine Injection (11/12/22 11:50) Accucheck Stat ONCE (11/12/22 12:09) Ua Culture If Indicated (11/12/22 12:10) Medications Given in ED Current Medications Medications Dose Ordered Sig/Sofia Route Start Time Stop Time Status Last Admin Dose Admin Ceftriaxone Sodium/Dextrose 50 ml @ 100 mls/hr ONCE ONCE IV 11/12/22 11:00 11/12/22 11:29 DC 11/12/22 11:51 100 MLS/HR Lactated Ringer's 1,000 ml @ 0 mls/hr Q0M ONCE IV 11/12/22 10:45 11/12/22 10:46 DC 11/12/22 10:56 1,000 MLS/HR Morphine Sulfate 10 mg STK-MED ONCE .ROUTE 11/12/22 11:50 11/12/22 11:52 DC 11/12/22 11:54 4 MG Vital Signs/I&O Capillary Refill : Departure Impression Primary Impression: Dehydration Additional Impressions: Post-op pain S/P tonsillectomy Hyperglycemia due to type 1 diabetes mellitus UTI (urinary tract infection) Disposition: 01 HOME, SELF-CARE Condition: Stable Departure-Patient Inst. Decision time for Depature: 12:23 Referrals: SHAHNAZ ATKINSON MD, DUSTIN L MD (PCP/Family) Primary Care Physician Patient Instructions: Urinary Tract Infections in Adults, Dehydration, Adult ED, High Blood Sugar, Adult ED Add. Discharge Instructions: STOP BY DR. ATKINSON'S OFFICE AND DRAPERY EXAMINER PRESCRIPTION FOR PAIN MEDICATION CONTINUE ALL PREVIOUS POST OP INSTRUCTIONS INCREASE YOUR FLUID INTAKE FOLLOW UP WITH DR. ATKINSON SCHEDULED RETURN TO ER IF SYMPTOMS WORSEN Scripts Cefdinir (Cefdinir) 250 Mg/5 Ml Susp.recon 6 ML PO BID for 10 Days, #120 ML Prov: AGNIESZKA MEJÍA DO 11/12/22 AGNIESZKA MEJÍA DO Nov 12, 2022 10:58
[2022-11-12] MEDS ORDERED: cefTRIAXone 1 GM PRE-MIX 50 ML IV ONE (11:00)
[2022-11-12 11:08] LABS: ALBUMIN 4.2 GM/DL (3.2-4.5); POTASSIUM 3.8 MMOL/L (3.6-5.0)
[2022-11-12 11:10] LABS: CALCIUM 9.7 MG/DL (8.5-10.1)
[2022-11-12 11:13] LABS: BILIRUBIN,TOTAL 0.6 MG/DL (0.1-1.0)
[2022-11-12 11:14] LABS: CREATININE SERUM 1.03 MG/DL (0.60-1.30)
[2022-11-12] MEDS ORDERED: morphine INJ 4 MG/ML 1 ML (VIAL/SYRINGE) IVP ONE (11:30)
[2022-11-12] MEDS ORDERED: morphine INJ 10 MG/ML 1ML (SYR OR VIAL) ONE (11:50)
[2022-11-12 12:16] LABS: CLARITY,URINE CLEAR; COLOR,URINE YELLOW; GLUCOSE, URINE (UA) TRACE (NEGATIVE); KETONES,URINE 3+ (NEGATIVE); LEUKOCYTE ESTERASE ,URINE TRACE (NEGATIVE); NITRITE,URINE NEGATIVE (NEGATIVE); PROTEIN,URINE 1+ (NEGATIVE)
[2022-11-12] MEDS ORDERED: CEFD250S3 PO (12:25)
[2022-11-12 12:33] VITALS: BP 106/82
[2022-11-12 12:38] LABS: SQUAMOUS EPITHELIAL CELL,UR 25-50 /HPF
[2022-11-12 12:39] LABS: BACTERIA,URINE LARGE /HPF; HYALINE CASTS, URINE 0-2 /LPF; RBC,URINE 0-2 /HPF
[2022-11-12 12:49] LABS: BILIRUBIN,URINE 1+ (NEGATIVE)
== END 2022-11-12 12:36 | disposition home or self-care (01) ==
LOC: EDUNIT# 10:34 → ER 10:36
DX: G89.18 Other acute postprocedural pain (principal); E10.65 Type 1 diabetes mellitus with hyperglycemia; E86.0 Dehydration; N39.0 Urinary tract infection, site not specified; Z90.89 Acquired absence of other organs
CPT/HCPCS: 36415; 80053; 81000; 82947; 85025; 93041